=== PATIENT | male | born 1995 | race Caucasian/White ===

== ENCOUNTER → 2016-11-16 | Outpatient (CLI) | payer OTHER ==
--- NOTE | 2016-11-20 13:23 | CT ---
EXAM DATE: 11/16/16 PATIENT'S AGE: 21 Patient: AUBREY THOMPSON Facility: [place], [place] Site Site : 93 Study: CT Extremity Right [id number] 2:39:55 PM Ordering Physician: RICCARDO Final Report: HISTORY: Right foot injury. Evaluate for fracture. Technique: Noncontrast CT of the right foot with axial reconstructed and sagittal coronal reformatted images created. Findings: As subtly seen on axial image #45 series 202, there is linear sclerosis involving the posterior aspect of the calcaneus measuring approximately 1.3 cm medial/lateral suspicious for a nondisplaced incomplete fracture consisting primarily of trabecular microfractures. No discrete cortical break. Correlation with the site of the patient`s pain is suggested. There is no acute distal tibial or fibular fracture. As seen on axial image #220 of series 201, there is subtle linear lucency involving the posterior medial aspect of the talar dome suspicious for a subcentimeter nondisplaced fracture. An ankle joint effusion is present. There is an os trigonum. Posterior subtalar joint effusion is present. The navicular bone, cuneiform bones and cuboid bone are intact. TMT alignment maintained. There is no metatarsal fracture. The phalanges are intact. There is soft tissue hemorrhage about the anterolateral aspect of the ankle. Impression: 1. Suspected tiny non-displaced fracture involving the posteromedial aspect of the talar dome measuring under 1 cm in size and subtly seen on the axial images. 2. Ankle and posterior subtalar joint effusions. 3. Linear sclerosis involving the posterior medial aspect of the calcaneus suspicious for a small nondisplaced incomplete fracture consisting of medullary trabecular microfractures and not a discrete cortical break. 4. Soft tissue hemorrhage within the anterolateral soft tissues of the ankle. Dictated by Isauro Murdock MD @ Nov 17 2016 4:41PM (Electronic Signature) Report Signed by Proxy. MIRTHA
== END ==
LOC: MW.DI 13:37
PROVIDERS: ATTEND General Practice
DX: S92.909A Unspecified fracture of unspecified foot, initial encounter for closed fracture (principal)
CPT/HCPCS: 73700-26-RT; 73700-RT

== ENCOUNTER 2018-10-02 18:35 | Emergency (ER) | payer BC, OTHER ==
[2018-10-02] MEDS ORDERED: Sodium Chloride 0.9% 1,000 ML IV ONE (19:45)
[2018-10-02] MEDS ORDERED: Ondansetron 4 MG/2 ML SDV IVPUSH ONE (19:45)
[2018-10-02] MEDS ORDERED: Ketorolac 30 MG/ML SDV IVPUSH ONE (19:52)
[2018-10-02 20:41] LABS: CHLORIDE,CL 104 mmol/L (98-107); SODIUM,NA 142 mmol/L (136-148)
--- NOTE | 2018-10-02 21:01 | EDM.PDOC ---
ED HPI GENERAL MEDICAL PROBLEM - General Chief Complaint: Abdominal Pain Stated Complaint: ABDOMINAL PAIN, VOMITING Time Seen by Provider: 10/02/18 19:45 Source of Information: Reports: Patient History Limitations: Reports: No Limitations - History of Present Illness INITIAL COMMENTS - FREE TEXT/NARRATIVE: HISTORY AND PHYSICAL: History of present illness: Patient is a 23-year-old male presents to the ED today with right lower quadrant pain. Patient states the pain does radiate around to the back. He states that the pain started yesterday and is currently a 9 out of 10. He describes it as sharp and burning. He states the pain is worse with movement and better with sitting up. Patient has not taken anything for his pain. Patient denies any prior abdominal surgeries. He denies fever, chills, burning with urination, blood in his urine or stool, change in bowel movement, testicular pain or scrotal tenderness. Review of systems: As per history of present illness and below otherwise all systems reviewed and negative. Past medical history: As per history of present illness and as reviewed below otherwise noncontributory. Surgical history: As per history of present illness and as reviewed below otherwise noncontributory. Social history: No reported history of drug or alcohol abuse. Family history: As per history of present illness and as reviewed below otherwise noncontributory. Physical exam: General: Patient sitting comfortably in no acute distress and nontoxic appearing HEENT: Atraumatic, normocephalic, pupils reactive, negative for conjunctival pallor or scleral icterus, mucous membranes moist, throat clear, neck supple, nontender, trachea midline. No meningeal signs. Lungs: Clear to auscultation, breath sounds equal bilaterally, chest nontender. Heart: S1S2, regular, negative for clicks, rubs, or overt murmur. Abdomen: Moderate pain to palpation of the right lower quadrant with guarding. Negative rebound tenderness. Otherwise, soft, nondistended. Negative for masses or hepatosplenomegaly. Negative for costovertebral tenderness. No rigidity, rebound, guarding. Pelvis: Stable nontender. Genitourinary: Deferred. Rectal: Deferred. Extremities: Atraumatic, negative for cords or calf pain. Neurovascular unremarkable. Neuro: Awake, alert, oriented. Cranial nerves II through XII unremarkable. Cerebellum unremarkable. Motor and sensory unremarkable throughout. Exam nonfocal. Notes: Did discuss with patient the need for follow-up of the area found in the femur. Also discussed the importance for follow-up with the Urologist. Supportive care measures were being discussed with patient. He doesn't have any questions or concerns at this time and is agreeable to plan of care. Diagnostics: CBC, CMP, UA, lipase, abdominal and pelvic CT Therapeutics: Toradol, Saline Prescriptions: Flomax, Zofran, [place] # 15 Impression: Ureter stone Plan: 1. Follow up with the Urologist. Take medications as prescribed. 2. Follow-up with your primary care provider for further follow up of the femur as discussed. 3. Return to the ED as needed as discussed. Definitive disposition and diagnosis as appropriate pending reevaluation and review of above. Right Lower Abdomen Pain Score (Numeric/FACES): 6 - Related Data Allergies Allergy/AdvReac Type Severity Reaction Status Date / Time No Known Allergies Allergy Verified 10/02/18 19:27 Home Meds: Home Meds Lisinopril 1 tab DAILY 10/02/18 [History] Past Medical History - Past Health History Medical/Surgical History: Denies Medical/Surgical History Cardiovascular History: Reports: Hypertension Respiratory History: Reports: Asthma - Past Surgical History HEENT Surgical History: Reports: Other (See Below) Other HEENT Surgeries/Procedures: jaw surgery Social & Family History - Family History Family Medical History: Noncontributory - Tobacco Use Smoking Status *Q: Current Every Day Smoker Years of Tobacco use: 7 Packs/Tins Daily: 0.1 - Caffeine Use Caffeine Use: Reports: None - Recreational Drug Use Recreational Drug Use: No ED ROS GENERAL - Review of Systems Review Of Systems: ROS reveals no pertinent complaints other than HPI. ED EXAM, GI/ABD - Physical Exam Exam: See Below (see dictation) Course - Vital Signs Last Recorded V/S: Last Vital Signs Temp 98.5 F 10/02/18 21:43 Pulse 80 10/02/18 21:43 Resp 18 10/02/18 21:43 BP 131/77 10/02/18 21:43 Pulse Ox 95 10/02/18 21:43 - Orders/Labs/Meds Labs: Laboratory Tests 10/02/18 10/02/18 10/02/18 Range/Units 19:58 19:58 19:58 WBC 9.05 (4.0-11.0) K/uL RBC 5.57 (4.50-5.90) M/uL Hgb 16.3 (13.0-17.0) g/dL Hct 47.2 (38.0-50.0) % MCV 84.7 (80.0-98.0) fL MCH 29.3 (27.0-32.0) pg MCHC 34.5 (31.0-37.0) g/dL RDW Std Deviation 40.1 (28.0-62.0) fl RDW Coeff of Monique 13 (11.0-15.0) % Plt Count 256 (150-400) K/uL MPV 9.70 (7.40-12.00) fL Neut % (Auto) 53.0 (48.0-80.0) % Lymph % (Auto) 35.8 (16.0-40.0) % [place] % (Auto) 8.7 (0.0-15.0) % Eos % (Auto) 1.9 (0.0-7.0) % Baso % (Auto) 0.6 (0.0-1.5) % Neut # (Auto) 4.8 (1.4-5.7) K/uL Lymph # (Auto) 3.2 H (0.6-2.4) K/uL [place] # (Auto) 0.8 (0.0-0.8) K/uL Eos # (Auto) 0.2 (0.0-0.7) K/uL Baso # (Auto) 0.1 (0.0-0.1) K/uL Nucleated RBC % 0.0 /100WBC Nucleated RBCs # 0 K/uL Sodium 142 (136-148) mmol/L Potassium 3.9 (3.5-5.1) mmol/L Chloride 104 (98-107) mmol/L Carbon Dioxide 29.1 (21.0-32.0) mmol/L BUN 15 (7.0-18.0) mg/dL Creatinine 1.0 (0.8-1.3) mg/dL Est Cr Clr Drug Dosing 101.90 mL/min Estimated GFR (MDRD) > 60.0 ml/min Glucose 86 (74-106) mg/dL Calcium 8.9 (8.5-10.1) mg/dL Total Bilirubin 0.3 (0.2-1.0) mg/dL AST 28 (15-37) IU/L ALT 91 H (14-63) IU/L Alkaline Phosphatase 134 H (46-116) U/L Total Protein 8.1 (6.4-8.2) g/dL Albumin 3.9 (3.4-5.0) g/dL Globulin 4.2 H (2.6-4.0) g/dL Albumin/Globulin Ratio 0.9 (0.9-1.6) Lipase 105 (73-393) U/L Urine Color YELLOW Urine Appearance CLEAR Urine pH 6.0 (5.0-8.0) Ur Specific [place] >= 1.030 (1.001-1.035) Urine Protein TRACE H (NEGATIVE) mg/dL Urine Glucose (UA) NEGATIVE (NEGATIVE) mg/dL Urine Ketones NEGATIVE (NEGATIVE) mg/dL Urine Occult Blood LARGE H (NEGATIVE) Urine Nitrite NEGATIVE (NEGATIVE) Urine Bilirubin NEGATIVE (NEGATIVE) Urine Urobilinogen 0.2 (<2.0) EU/dL Ur Leukocyte Esterase NEGATIVE (NEGATIVE) Urine RBC 24-26 (0-2/HPF) Urine WBC 0-2 (0-5/HPF) Ur Epithelial Cells RARE (NONE-FEW) Calcium Oxalate Crystal RARE (NEGATIVE) Urine Bacteria FEW (NEGATIVE) Urine Mucus LIGHT (NONE-MOD) Meds: Medications Discontinued Medications Generic Name Dose Route Start Last Admin Trade Name Freq PRN Reason Stop Dose Admin Sodium Chloride 1,000 mls @ 999 mls/hr 10/02/18 19:45 10/02/18 20:01 Normal Saline IV 10/02/18 20:45 999 mls/hr STAT ONE Administration Ketorolac Tromethamine 30 mg 10/02/18 19:52 10/02/18 20:04 Toradol IVPUSH 10/02/18 19:53 30 mg ONETIME ONE Administration Ondansetron HCl 4 mg 10/02/18 19:45 10/02/18 20:01 Zofran IVPUSH 10/02/18 19:46 4 mg ONETIME ONE Administration Departure - Departure Time of Disposition: 21:49 Disposition: Home, Self-Care 01 Clinical Impression: Ureteral stone with hydronephrosis - Discharge Information Referrals: PCP,Not In Area [Primary Care Provider] - Forms: ED Department Discharge Additional Instructions: The following information is given to patients seen in the emergency department who are being discharged to home. This information is to outline your options for follow-up care. We provide all patients seen in our emergency department with a follow-up referral. The need for follow-up, as well as the timing and circumstances, are variable depending upon the specifics of your emergency department visit. If you don't have a primary care physician on staff, we will provide you with a referral. We always advise you to contact your personal physician following an emergency department visit to inform them of the circumstance of the visit and for follow-up with them and/or the need for any referrals to a consulting specialist. The emergency department will also refer you to a specialist when appropriate. This referral assures that you have the opportunity for follow-up care with a specialist. All of these measure are taken in an effort to provide you with optimal care, which includes your follow-up. Under all circumstances we always encourage you to contact your private physician who remains a resource for coordinating your care. When calling for follow-up care, please make the office aware that this follow-up is from your recent emergency room visit. If for any reason you are refused follow-up, please contact the [facility] Emergency Department at and asked to speak to the emergency department charge nurse. [facility] [address] [place] [id number] [place] [address] 1. Take medications as prescribed. You can alternate Motrin and ibuprofen as needed and as directed for pain and discomfort. 2. Follow-up with your it teacher or primary care provider as discussed. 3. Return to ED as needed as discussed.
--- NOTE | 2018-10-02 21:42 | CT ---
INDICATION: Right lower quadrant pain for 3 days TECHNIQUE: CT abdomen and pelvis acquired with 100 cc Isovue 370 IV contrast. COMPARISON: None FINDINGS: Lower chest: Unremarkable. Liver: Unremarkable. Spleen: Unremarkable. Pancreas: Unremarkable. Gallbladder and bile ducts: Unremarkable. Adrenal glands: Unremarkable. Kidneys: Mild right hydronephrosis and hydroureter secondary to a 3 mm stone in the mid right ureter. There is also a 3 mm stone in the right mid kidney. GI tract: There are few colonic diverticula. No evidence for diverticulitis. Appendix is normal. Vascular structures: Unremarkable. Lymph nodes: Unremarkable. Miscellaneous: Small fat containing umbilical hernia. No free air or significant free fluid. Pelvic Organs: Unremarkable. Bones: Partial visualization of a 2.6 cm mixed lytic and sclerotic bone lesion in the proximal diaphysis of the left femur. This has a well-defined, sclerotic margin. No periosteal reaction identified. Note that the entire lesion is not included on this exam. IMPRESSION: IMPRESSION:Mild right hydronephrosis and hydroureter secondary to a 3 mm stone in the mid right ureter. There is also a 3 mm stone in the right mid kidney. There are a few colonic diverticula. Normal appendix. Bone lesion in the proximal diaphysis of the left femur. This has a nonaggressive appearance. This lesion is not entirely included on this exam. Non emergent radiographs of the left femur are recommended for further characterization. Please note that all CT scans at this facility use dose modulation, iterative reconstruction, and/or weight-based dosing when appropriate to reduce radiation dose to as low as reasonably achievable. Dictated by Alix Josue MD @ Oct 02 2018 9:31PM Signed by Dr. Alix Josue @ Oct 02 2018 9:41PM
== END 2018-10-02 22:10 | disposition home or self-care (01) ==
LOC: MW.ED 18:35
DX: N13.2 Hydronephrosis with renal and ureteral calculous obstruction (principal); F17.210 Nicotine dependence, cigarettes, uncomplicated; I10 Essential (primary) hypertension; J45.909 Unspecified asthma, uncomplicated; Z79.899 Other long term (current) drug therapy
CPT/HCPCS: 36415; 74177; 80053; 81001; 83690; 85025; 96361; 96374; 96375; 99284; J1885; J2405; J7040

== ENCOUNTER 2018-11-06 07:57 | Emergency (ER) | payer BC ==
[2018-11-06] MEDS ORDERED: Ketorolac 60 MG/2 ML SDV IM ONE (08:14)
--- NOTE | 2018-11-06 08:17 | EDM.PDOC ---
ED HPI GENERAL MEDICAL PROBLEM - General Chief Complaint: Flank Pain Stated Complaint: LOWER BACK PAIN Time Seen by Provider: 11/06/18 08:08 - History of Present Illness INITIAL COMMENTS - FREE TEXT/NARRATIVE: HISTORY AND PHYSICAL: History of present illness: The patient is a healthy 23-year-old male who presents with complaints of persistent right groin pain which he has had since the end of September. The patient has a history of one kidney stone in the past that had to be removed and was seen here in our emergency department on October 02 for kidney stone on the right side. He was diagnosed with a 3 mm ureteral stone as well as a second 3 mm stone within the right kidney. The patient says that she was given medication but did not follow-up and he did feel better but the pain has returned and has never completely gone away. He says he has been straining his urine but he has not seen a kidney stone. He has no hematuria and no dysuria or frequency and no flank pain. He said in September she had pain in the back as well as the groin but now it is just in the groin. He has no trauma to the area no right upper abdominal pain no fevers chills nausea or vomiting. He has no testicular pain or swelling. The patient insists that he has been straining his urine has not seen a kidney stone. The patient has no midline back pain and the discomfort he is feeling in his groin does not radiate to his leg Review of systems: As per history of present illness and below otherwise all systems reviewed and negative. Past medical history: As per history of present illness and as reviewed below otherwise noncontributory. Surgical history: As per history of present illness and as reviewed below otherwise noncontributory. Social history: No reported history of drug or alcohol abuse. Family history: As per history of present illness and as reviewed below otherwise noncontributory. Physical exam: General: Well-developed well-nourished overweight man who is nontoxic and vital signs are noted by me. He looks very comfortable in the room HEENT: Atraumatic, normocephalic, negative for conjunctival pallor or scleral icterus, mucous membranes moist, throat clear, neck supple, nontender, trachea midline. Lungs: Clear to auscultation, breath sounds equal bilaterally, chest nontender. Heart: S1S2, regular rate and rhythm no overt murmurs Abdomen: Soft, nondistended, nontender. Negative for masses or hepatosplenomegaly. Negative for costovertebral tenderness. I'm unable to elicit pain on palpation and bowel sounds are normoactive Pelvis: Stable nontender. Genitourinary: Deferred. Rectal: Deferred. Extremities: Atraumatic, negative for cords or calf pain. Neurovascular unremarkable. Neuro: Awake, alert, oriented. Cranial nerves II through XII unremarkable. Cerebellum unremarkable. Motor and sensory unremarkable throughout. Exam nonfocal. Diagnostics: CBC CMP UA with reflex CT scan Therapeutics: Toradol She is aware of all testing results and that he does need to be followed up by urology. He says he is scheduled to go back home to [facility] next week again I did tell him to call and follow-up with Dr. Garcia here and I will give him a copy of his CT scan so that he can follow-up at home if he chooses. I still will give him more Flomax as well as pain management to try to pass this spontaneously but at this point he will need to be seen by urology as he will likely need an intervention unless it happens in the next one week. Patient is aware of Impression: Persistent right ureteral stone Definitive disposition and diagnosis as appropriate pending reevaluation and review of above. Right groin Pain Score (Numeric/FACES): 7 - Related Data Allergies Allergy/AdvReac Type Severity Reaction Status Date / Time No Known Allergies Allergy Verified 11/06/18 08:09 Home Meds: Home Meds Lisinopril 1 tab DAILY 10/02/18 [History] Past Medical History - Past Health History Medical/Surgical History: Denies Medical/Surgical History HEENT History: Reports: None Cardiovascular History: Reports: Hypertension Respiratory History: Reports: Asthma Gastrointestinal History: Reports: None Genitourinary History: Reports: Renal Calculus Musculoskeletal History: Reports: None Neurological History: Reports: None Psychiatric History: Reports: None Endocrine/Metabolic History: Reports: None Hematologic History: Reports: None Immunologic History: Reports: None Oncologic (Cancer) History: Reports: None Dermatologic History: Reports: None - Past Surgical History Head Surgeries/Procedures: Reports: None HEENT Surgical History: Reports: Other (See Below) Other HEENT Surgeries/Procedures: jaw surgery Cardiovascular Surgical History: Reports: None Respiratory Surgical History: Reports: None GI Surgical History: Reports: None Male Surgical History: Reports: None Endocrine Surgical History: Reports: None Neurological Surgical History: Reports: None Musculoskeletal Surgical History: Reports: Amputation Oncologic Surgical History: Reports: None Dermatological Surgical History: Reports: None Social & Family History - Family History Family Medical History: Noncontributory - Caffeine Use Caffeine Use: Reports: None ED ROS GENERAL - Review of Systems Review Of Systems: ROS reveals no pertinent complaints other than HPI. ED EXAM, GENERAL - Physical Exam Exam: See Below (See dictation) Course - Vital Signs Last Recorded V/S: Last Vital Signs Temp 36.1 C 11/06/18 08:07 Pulse 86 11/06/18 08:07 Resp 18 11/06/18 08:07 BP 163/130 H 11/06/18 08:07 Pulse Ox 95 11/06/18 08:07 - Orders/Labs/Meds Labs: Laboratory Tests 11/06/18 11/06/18 11/06/18 Range/Units 08:23 08:23 08:25 WBC 8.16 (4.0-11.0) K/uL RBC 5.30 (4.50-5.90) M/uL Hgb 15.4 (13.0-17.0) g/dL Hct 45.3 (38.0-50.0) % MCV 85.5 (80.0-98.0) fL MCH 29.1 (27.0-32.0) pg MCHC 34.0 (31.0-37.0) g/dL RDW Std Deviation 40.8 (28.0-62.0) fl RDW Coeff of Monique 13 (11.0-15.0) % Plt Count 251 (150-400) K/uL MPV 9.50 (7.40-12.00) fL Neut % (Auto) 52.1 (48.0-80.0) % Lymph % (Auto) 39.2 (16.0-40.0) % [place] % (Auto) 6.0 (0.0-15.0) % Eos % (Auto) 2.1 (0.0-7.0) % Baso % (Auto) 0.6 (0.0-1.5) % Neut # (Auto) 4.3 (1.4-5.7) K/uL Lymph # (Auto) 3.2 H (0.6-2.4) K/uL [place] # (Auto) 0.5 (0.0-0.8) K/uL Eos # (Auto) 0.2 (0.0-0.7) K/uL Baso # (Auto) 0.1 (0.0-0.1) K/uL Nucleated RBC % 0.0 /100WBC Nucleated RBCs # 0 K/uL Sodium 138 (136-148) mmol/L Potassium 3.9 (3.5-5.1) mmol/L Chloride 99 (98-107) mmol/L Carbon Dioxide 26.0 (21.0-32.0) mmol/L BUN 13 (7.0-18.0) mg/dL Creatinine 0.9 (0.8-1.3) mg/dL Est Cr Clr Drug Dosing 113.23 mL/min Estimated GFR (MDRD) > 60.0 ml/min Glucose 102 (74-106) mg/dL Calcium 9.2 (8.5-10.1) mg/dL Total Bilirubin 0.4 (0.2-1.0) mg/dL AST 29 (15-37) IU/L ALT 53 (14-63) IU/L Alkaline Phosphatase 129 H (46-116) U/L Total Protein 8.2 (6.4-8.2) g/dL Albumin 4.2 (3.4-5.0) g/dL Globulin 4.0 (2.6-4.0) g/dL Albumin/Globulin Ratio 1.0 (0.9-1.6) Urine Color YELLOW Urine Appearance CLEAR Urine pH 6.0 (5.0-8.0) Ur Specific [place] >= 1.030 (1.001-1.035) Urine Protein TRACE H (NEGATIVE) mg/dL Urine Glucose (UA) NEGATIVE (NEGATIVE) mg/dL Urine Ketones NEGATIVE (NEGATIVE) mg/dL Urine Occult Blood TRACE-INTACT H (NEGATIVE) Urine Nitrite NEGATIVE (NEGATIVE) Urine Bilirubin NEGATIVE (NEGATIVE) Urine Urobilinogen 0.2 (<2.0) EU/dL Ur Leukocyte Esterase NEGATIVE (NEGATIVE) Urine RBC 1-3 (0-2/HPF) Urine WBC 0-3 (0-5/HPF) Ur Epithelial Cells OCCASIONAL (NONE-FEW) Urine Bacteria FEW (NEGATIVE) Urine Mucus LIGHT (NONE-MOD) Meds: Medications Discontinued Medications Generic Name Dose Route Start Last Admin Trade Name [place] PRN Reason Stop Dose Admin Ketorolac Tromethamine 60 mg 11/06/18 08:14 11/06/18 08:23 Toradol IM 11/06/18 08:15 60 mg ONETIME ONE Administration Departure - Departure Time of Disposition: 09:45 Disposition: Home, Self-Care 01 Condition: Good Clinical Impression: Ureteral stone - Discharge Information Referrals: PCP,None [Primary Care Provider] - Forms: ED Department Discharge Additional Instructions: The following information is given to patients seen in the emergency department who are being discharged to home. This information is to outline your options for follow-up care. We provide all patients seen in our emergency department with a follow-up referral. The need for follow-up, as well as the timing and circumstances, are variable depending upon the specifics of your emergency department visit. If you don't have a primary care physician on staff, we will provide you with a referral. We always advise you to contact your personal physician following an emergency department visit to inform them of the circumstance of the visit and for follow-up with them and/or the need for any referrals to a consulting specialist. The emergency department will also refer you to a specialist when appropriate. This referral assures that you have the opportunity for followup care with a specialist. All of these measure are taken in an effort to provide you with optimal care, which includes your followup. Under all circumstances we always encourage you to contact your private physician who remains a resource for coordinating your care. When calling for followup care, please make the office aware that this follow-up is from your recent emergency room visit. If for any reason you are refused follow-up, please contact the [facility] emergency department at and ask to speak to the emergency department charge nurse. [facility] [address] [place] [address] [id number] Push hydration and take Flomax as directed daily to try to help pass the stone. Continue to strain all urine looking for the kidney stone. Please contact our urologist or your urologist at home for follow-up care as he will likely need this follow-up in order to facilitate passage of the stone as it has been persistent since September. Use pain medications as needed and directed and also add [id number] ibuprofen. The pain medication you have been prescribed can only be taken when at home. Return to ER as needed and as discussed
[2018-11-06 09:01] LABS: CHLORIDE,CL 99 mmol/L (98-107); SODIUM,NA 138 mmol/L (136-148)
--- NOTE | 2018-11-06 09:26 | CT ---
CT of the abdomen and pelvis without contrast. HISTORY: Pain TECHNIQUE: Axial CT images were obtained of the abdomen and pelvis without contrast. Coronal and sagittal reconstructions obtained. FINDINGS: The lung bases are clear, no pleural effusion. The liver, spleen, adrenal glands, and pancreas appear unremarkable for noncontrast examination. The gallbladder appears normal. There is no bulky retroperitoneal lymphadenopathy. No abdominal ascites. There is a 2.5 mm stone within the distal ureter with mild proximal hydronephrosis. 2 mm nonobstructing right stone also noted. The large and small bowel are normal in caliber without evidence of obstruction. The appendix appears normal. There is no bulky pelvic lymphadenopathy. No free fluid. No free air. The urinary bladder appears normal. The visualized osseous structures appear normal. IMPRESSION: 1. There is a 2.5 mm stone within the distal right ureter with mild proximal hydronephrosis. 2. Nonobstructing nephrolithiasis also noted.
== END 2018-11-06 09:54 | disposition home or self-care (01) ==
LOC: MW.ED 07:57
DX: N13.2 Hydronephrosis with renal and ureteral calculous obstruction (principal)
CPT/HCPCS: 36415; 74176; 80053; 81001; 85025; 96372; 99284; J1885

== ENCOUNTER 2019-02-17 23:17 | Emergency (ER) | payer BC ==
[2019-02-17] MEDS ORDERED: Acetaminophen 500 MG Tab PO ONE (23:36)
[2019-02-17] MEDS ORDERED: Sodium Chloride 0.9% 2.5 ML Syringe FLUSH PRN (23:36)
[2019-02-17] MEDS ORDERED: Ondansetron 4 MG/2 ML SDV IVPUSH ONE (23:36)
[2019-02-17] MEDS ORDERED: Sodium Chloride 0.9% 10 ML Syringe FLUSH PRN (23:36)
[2019-02-17] MEDS ORDERED: Sodium Chloride 0.9% 1,000 ML IV ONE (23:36)
--- NOTE | 2019-02-17 23:41 | EDM.PDOC ---
ED HPI GENERAL MEDICAL PROBLEM - General Chief Complaint: Chest Pain Stated Complaint: PT HAS HIGH BLOOD PRESSURE Time Seen by Provider: 02/17/19 23:28 - History of Present Illness INITIAL COMMENTS - FREE TEXT/NARRATIVE: HISTORY AND PHYSICAL: History of present illness: The patient is a 23-year-old male with a history of hypertension for which he was taking lisinopril 10 mg daily and has been off those meds or about 1 year and who presents with a persistent frontal headache that comes and goes and is now associated with some nausea and slight chest pain. The patient says that his provider moved and he never connected with a new provider to get a refill on his prescription and initially he was on 20 mg a day and it was lowered to 10 mg a day and he has been off that for the last one year. The patient says that about a week ago he was having sexual intercourse when he started feeling like he was getting a headache in his temples and frontal this head which was gradual in onset and not sudden and he took some ibuprofen and it went away. He says that since that initial headache he has had headaches every other day if not every day and it is worse at nighttime when he is not busy doing his work. He has been eating and drinking normally through this and has had intermittent nausea when the headache comes on and he mostly has headaches at nighttime and he takes an ibuprofen/Motrin and goes to sleep and he gets better. This is why he did not come in to seek medical attention. The patient says that when his doing his work during the day he doesn't really feel any discomfort. This evening he took some Motrin and it did not work so he had some old hydrocodone' s from his prior kidney stone and he took a half tablet of that and it did not help so he thought he should come in. He says that initially with the headache he did have nausea and one episode of vomiting and since that time whenever he gets a headache he does feel a little nauseated but has not vomited. He's had no fevers no chills no upper respiratory symptoms no shortness of breath no diarrhea and is making normal urine output. He says that about 30 minutes ago while he was having a headache he started having some vague chest discomfort which is not localizing right or left and has not occurred with any of the prior headaches. He has no weakness numbness or tingling in his extremities no recent trauma and no neck or back pain. He says that the headaches are all in the front of his head and he does not have any posterior head or neck pain. His neck does not feel stiff. Review of systems: As per history of present illness and below otherwise all systems reviewed and negative. Past medical history: As per history of present illness and as reviewed below otherwise noncontributory. Surgical history: As per history of present illness and as reviewed below otherwise noncontributory. Social history: No reported history of drug or alcohol abuse. Family history: As per history of present illness and as reviewed below otherwise noncontributory. Physical exam: General: Well-developed well-nourished overweight man who is nontoxic and vital signs are noted by me. HEENT: Atraumatic, normocephalic, pupils reactive, negative for conjunctival pallor or scleral icterus, mucous membranes moist, throat clear, neck supple, nontender, trachea midline. The patient is slightly photophobic on evaluation and he has no nuchal rigidity or lymphadenopathy. When I palpate the temples bilaterally he says it is discomforting as well as when I touch the frontal scalp but there are no defects deformities or strict sinus tenderness. Lungs: Clear to auscultation, breath sounds equal bilaterally, chest nontender. Heart: S1S2, regular, negative for clicks, rubs, or JVD. Abdomen: Soft, nondistended, nontender. Negative for masses or hepatosplenomegaly. Negative for costovertebral tenderness. Pelvis: Stable nontender. Genitourinary: Deferred. Rectal: Deferred. Extremities: Atraumatic, negative for cords or calf pain. Neurovascular unremarkable. No pedal edema or leg asymmetry Neuro: Awake, alert, oriented. Cranial nerves II through XII unremarkable. Cerebellum unremarkable. Motor and sensory unremarkable throughout. Exam nonfocal. Diagnostics: EKG CBC CMP INR troponin UA with reflex CT scan of the head chest x-ray; CTA of the head Spinal fluid for cell count in tubes 1 and 4, protein glucose 2, Gram stain and culture to 3 Therapeutics: IV O2 monitor IV fluids Zofran Tylenol; Toradol Benadryl Solu-Medrol Dilaudid The patient's repeat blood pressure is 123/61 and his nausea has improved. He says he still has a headache after the Tylenol and I will dose him with other pain medications pending the CT scan results. I have not given him any antihypertensives. I discussed with the patient his testing results and will be giving him more medications for his headache pain. I discussed with them that his story is concerning for an aneurysmal bleed due to the way the headache started 1 week ago but it is also not classic in length that it has been ongoing for the last [address] scan findings. We have discussed proceeding to a CTA of his head to see if an delineate any aneurysm. We will discuss further workup and care pending that test result and his response to medications. I discussed with the patient his negative CTA of the head revealing no evidence of aneurysm. He says his headache is improved and in fact when I entered the room he was sleeping again and I had to wake him to discuss the test results. I discussed with them the percentages of a negative CTA with presence of subarachnoid hemorrhage and although it is small I still will offer him the lumbar puncture. We have also discussed that it is unclear if the lumbar puncture will give us a definitive answer as he has had this headache for the last 1 week. We have discussed risks and benefits and procedure itself is currently thinking and deciding what he would like to do. Patient has signed consent for lumbar puncture to obtain fluid for study. I explained the procedure risks and benefits to him at length. Procedure note: After the procedure was explained and consent was signed the patient was positioned in the seated position and the area of his back was prepped and draped in sterile fashion. 1% lidocaine without epinephrine was infused in the lower lumbar soft tissue area and the L4-L5 disc space was attempted to be accessed and on my first pass the patient said that he was feeling lightheaded and hot and he wanted to lay down. The spinal needle was removed and the patient was laid down. I was only able to get the first attempt when these symptoms started and was only starting to approach the disc space . At that point in light of the patient's concern and the difficulty in obtaining this fluid due to the soft tissue and body habitus the EQUIPMENT SERVICE ASSOCIATE was contacted and he is now here doing the procedure. Please see his note for procedure note information. I gave a dose of Dilaudid to the patient to see if I could break the headache and I have. The patient was strongly advised to be admitted to the hospital for further care and evaluation by Dr. Whitley this morning and she is available for consultation for inpatient. The patient is aware of my concerns and the risks and does not want to be admitted to the hospital. I will give him tramadol for home but told him I can give him nothing stronger and have advised him to start a headache journal. He is also aware that I cannot restart his lisinopril as he has been normotensive since being here and that would need to be addressed in the clinic. I placed his name on the expedited follow-up and he has been told to call at 8:30 in the morning to get an appointment in the next few days. He will be told to call the ED if he cannot get that appointment. He was also advised on reasons to return Critical care time excluding procedures:35min Impression: Episodic headache Hypertension with medication noncompliance Definitive disposition and diagnosis as appropriate pending reevaluation and review of above. chest Pain Score (Numeric/FACES): 5 headache Pain Score (Numeric/FACES): 9 - Related Data Allergies Allergy/AdvReac Type Severity Reaction Status Date / Time No Known Allergies Allergy Verified 02/17/19 23:25 Home Meds: Home Meds . [No Known Home Meds] 02/17/19 [History] Past Medical History - Past Health History Medical/Surgical History: Denies Medical/Surgical History HEENT History: Reports: None Cardiovascular History: Reports: Hypertension, Other (See Below) Other Cardiovascular History: states been off his HTN medications for almost a year Respiratory History: Reports: Asthma Gastrointestinal History: Reports: None Genitourinary History: Reports: Renal Calculus Musculoskeletal History: Reports: None Neurological History: Reports: None Psychiatric History: Reports: None Endocrine/Metabolic History: Reports: None Hematologic History: Reports: None Immunologic History: Reports: None Oncologic (Cancer) History: Reports: None Dermatologic History: Reports: None - Infectious Disease History Infectious Disease History: Reports: Chicken Pox - Past Surgical History Head Surgeries/Procedures: Reports: None HEENT Surgical History: Reports: Other (See Below) Other HEENT Surgeries/Procedures: jaw surgery Cardiovascular Surgical History: Reports: None Respiratory Surgical History: Reports: None GI Surgical History: Reports: None Male Surgical History: Reports: Other (See Below) Other Male Surgeries/Procedures: kidney stones blasted Endocrine Surgical History: Reports: None Neurological Surgical History: Reports: None Oncologic Surgical History: Reports: None Dermatological Surgical History: Reports: None Social & Family History - Family History Family Medical History: Noncontributory - Tobacco Use Smoking Status *Q: Current Every Day Smoker Years of Tobacco use: 5 Packs/Tins Daily: 0.5 - Caffeine Use Caffeine Use: Reports: None - Recreational Drug Use Recreational Drug Use: No ED ROS GENERAL - Review of Systems Review Of Systems: ROS reveals no pertinent complaints other than HPI. ED EXAM, GENERAL - Physical Exam Exam: See Below (See dictation) Course - Vital Signs Last Recorded V/S: Last Vital Signs Temp 36.1 C 02/18/19 02:00 Pulse 78 02/18/19 02:54 Resp 18 02/18/19 02:54 BP 121/62 02/18/19 02:54 Pulse Ox 96 02/18/19 02:54 - Orders/Labs/Meds Orders: Active Orders 24 hr Category Date Time Status Cardiac Monitoring [RC] . DIRECTED Care 02/17/19 23:35 Active Notify Provider Consults [RC] ASDIRECTED Care 02/18/19 03:06 Active Oxygen Therapy, ED [RC] ASDIRECTED Care 02/17/19 23:35 Active Pulse Oximetry [RC] ASDIRECTED Care 02/17/19 23:35 Active Consult to Physician [CONS] Stat Cons 02/18/19 03:06 Active CULTURE CSF + SMEAR [RM] Stat Lab 02/18/19 03:10 Received GLUCOSE,CSF [BF] Stat Lab 02/18/19 03:10 Received PROTEIN,CSF [BF] Stat Lab 02/18/19 03:10 Received Sodium Chloride 0.9% [Normal Saline] 1,000 ml Med 02/18/19 03:45 Active IV ASDIRECTED Sodium Chloride 0.9% [Saline Flush] Med 02/17/19 23:36 Active 10 ml FLUSH ASDIRECTED PRN Sodium Chloride 0.9% [Saline Flush] Med 02/17/19 23:36 Active 2.5 ml FLUSH ASDIRECTED PRN Saline Lock Insert [OM.PC] Stat Oth 02/17/19 23:35 Ordered Medication Orders Sodium Chloride (Normal Saline) 1,000 mls @ 150 mls/hr IV ASDIRECTED ISABEL Last Admin: 02/18/19 03:38 Dose: 150 mls/hr Sodium Chloride (Saline Flush) 10 ml FLUSH ASDIRECTED PRN PRN Reason: Keep Vein Open Sodium Chloride (Saline Flush) 2.5 ml FLUSH ASDIRECTED PRN PRN Reason: Keep Vein Open Labs: Laboratory Tests 02/17/19 02/17/19 02/17/19 Range/Units 23:53 23:53 23:53 WBC 9.78 (4.0-11.0) K/uL RBC 5.25 (4.50-5.90) M/uL Hgb 14.9 (13.0-17.0) g/dL Hct 44.5 (38.0-50.0) % MCV 84.8 (80.0-98.0) fL MCH 28.4 (27.0-32.0) pg MCHC 33.5 (31.0-37.0) g/dL RDW Std Deviation 39.5 (28.0-62.0) fl RDW Coeff of Monique 13 (11.0-15.0) % Plt Count 278 (150-400) K/uL MPV 9.50 (7.40-12.00) fL Neut % (Auto) 62.5 (48.0-80.0) % Lymph % (Auto) 29.4 (16.0-40.0) % [place] % (Auto) 6.6 (0.0-15.0) % Eos % (Auto) 1.0 (0.0-7.0) % Baso % (Auto) 0.5 (0.0-1.5) % Neut # (Auto) 6.1 H (1.4-5.7) K/uL Lymph # (Auto) 2.9 H (0.6-2.4) K/uL Norton # (Auto) 0.7 (0.0-0.8) K/uL Eos # (Auto) 0.1 (0.0-0.7) K/uL Baso # (Auto) 0.1 (0.0-0.1) K/uL Nucleated RBC % 0.0 /100WBC Nucleated RBCs # 0 K/uL INR 1.18 Sodium 139 (136-148) mmol/L Potassium 3.6 (3.5-5.1) mmol/L Chloride 101 (98-107) mmol/L Carbon Dioxide 27.2 (21.0-32.0) mmol/L BUN 17 (7.0-18.0) mg/dL Creatinine 0.9 (0.8-1.3) mg/dL Est Cr Clr Drug Dosing 113.23 mL/min Estimated GFR (MDRD) > 60.0 ml/min Glucose 118 H (74-106) mg/dL Calcium 8.9 (8.5-10.1) mg/dL Total Bilirubin 0.5 (0.2-1.0) mg/dL AST 22 (15-37) IU/L ALT 42 (14-63) IU/L Alkaline Phosphatase 116 (46-116) U/L Troponin I < 0.050 (0.000-0.056) ng/mL Total Protein 7.7 (6.4-8.2) g/dL Albumin 3.9 (3.4-5.0) g/dL Globulin 3.8 (2.6-4.0) g/dL Albumin/Globulin Ratio 1.0 (0.9-1.6) Urine Color Urine Appearance Urine pH (5.0-8.0) Ur Specific [place] (1.001-1.035) Urine Protein (NEGATIVE) mg/dL Urine Glucose (UA) (NEGATIVE) mg/dL Urine Ketones (NEGATIVE) mg/dL Urine Occult Blood (NEGATIVE) Urine Nitrite (NEGATIVE) Urine Bilirubin (NEGATIVE) Urine Urobilinogen (<2.0) EU/dL Ur Leukocyte Esterase (NEGATIVE) Urine RBC (0-2/HPF) Urine WBC (0-5/HPF) Ur Epithelial Cells (NONE-FEW) Amorphous Sediment (NEGATIVE) Urine Bacteria (NEGATIVE) Urine Mucus (NONE-MOD) CSF Appearance CSF Color CSF WBC (0-0.005) K/uL CSF RBC (0.0-0.0) M/uL CSF Mononuclear Cells % CSF Polymorphonuclear % 02/18/19 02/18/19 02/18/19 Range/Units 00:25 03:10 03:10 WBC (4.0-11.0) K/uL RBC (4.50-5.90) M/uL Hgb (13.0-17.0) g/dL Hct (38.0-50.0) % MCV (80.0-98.0) fL MCH (27.0-32.0) pg MCHC (31.0-37.0) g/dL RDW Std Deviation (28.0-62.0) fl RDW Coeff of Monique (11.0-15.0) % Plt Count (150-400) K/uL MPV (7.40-12.00) fL Neut % (Auto) (48.0-80.0) % Lymph % (Auto) (16.0-40.0) % Norton % (Auto) (0.0-15.0) % Eos % (Auto) (0.0-7.0) % Baso % (Auto) (0.0-1.5) % Neut # (Auto) (1.4-5.7) K/uL Lymph # (Auto) (0.6-2.4) K/uL Norton # (Auto) (0.0-0.8) K/uL Eos # (Auto) (0.0-0.7) K/uL Baso # (Auto) (0.0-0.1) K/uL Nucleated RBC % /100WBC Nucleated RBCs # K/uL INR Sodium (136-148) mmol/L Potassium (3.5-5.1) mmol/L Chloride (98-107) mmol/L Carbon Dioxide (21.0-32.0) mmol/L BUN (7.0-18.0) mg/dL Creatinine (0.8-1.3) mg/dL Est Cr Clr Drug Dosing mL/min Estimated GFR (MDRD) ml/min Glucose (74-106) mg/dL Calcium (8.5-10.1) mg/dL Total Bilirubin (0.2-1.0) mg/dL AST (15-37) IU/L ALT (14-63) IU/L Alkaline Phosphatase (46-116) U/L Troponin I (0.000-0.056) ng/mL Total Protein (6.4-8.2) g/dL Albumin (3.4-5.0) g/dL Globulin (2.6-4.0) g/dL Albumin/Globulin Ratio (0.9-1.6) Urine Color YELLOW Urine Appearance CLEAR Urine pH 6.5 (5.0-8.0) Ur Specific [place] 1.025 (1.001-1.035) Urine Protein TRACE H (NEGATIVE) mg/dL Urine Glucose (UA) NEGATIVE (NEGATIVE) mg/dL Urine Ketones NEGATIVE (NEGATIVE) mg/dL Urine Occult Blood NEGATIVE (NEGATIVE) Urine Nitrite NEGATIVE (NEGATIVE) Urine Bilirubin NEGATIVE (NEGATIVE) Urine Urobilinogen 0.2 (<2.0) EU/dL Ur Leukocyte Esterase NEGATIVE (NEGATIVE) Urine RBC 0-1 (0-2/HPF) Urine WBC 0-1 (0-5/HPF) Ur Epithelial Cells RARE (NONE-FEW) Amorphous Sediment MODERATE (NEGATIVE) Urine Bacteria RARE (NEGATIVE) Urine Mucus LIGHT (NONE-MOD) CSF Appearance CLEAR CLEAR CSF Color COLORLESS COLORLESS CSF WBC 0.002 0.003 (0-0.005) K/uL CSF RBC 0.000 0.000 (0.0-0.0) M/uL CSF Mononuclear Cells 100.0 100.0 % CSF Polymorphonuclear 0.0 0.0 % Meds: Medications Generic Name Dose Route Start Last Admin Trade Name Roverto PRN Reason Stop Dose Admin Sodium Chloride 1,000 mls @ 150 mls/hr 02/18/19 03:45 02/18/19 03:38 Normal Saline IV 150 mls/hr ASDIRECTED ISABEL Administration Sodium Chloride 10 ml 02/17/19 23:36 Saline Flush FLUSH ASDIRECTED PRN Keep Vein Open Sodium Chloride 2.5 ml 02/17/19 23:36 Saline Flush FLUSH ASDIRECTED PRN Keep Vein Open Discontinued Medications Generic Name Dose Route Start Last Admin Trade Name Roverto PRN Reason Stop Dose Admin Acetaminophen 1,000 mg 02/17/19 23:36 02/17/19 23:50 Tylenol Extra Strength PO 02/17/19 23:37 1,000 mg ONETIME ONE Administration Diphenhydramine HCl 50 mg 02/18/19 00:58 02/18/19 01:06 Benadryl IVPUSH 02/18/19 00:59 50 mg ONETIME ONE Administration Hydromorphone HCl 1 mg 02/18/19 03:41 02/18/19 03:45 Dilaudid IVPUSH 02/18/19 03:42 1 mg ONETIME ONE Administration Sodium Chloride 1,000 mls @ 999 mls/hr 02/17/19 23:36 02/17/19 23:49 Normal Saline IV 02/18/19 00:36 999 mls/hr STAT ONE Administration Lidocaine HCl Confirm 02/18/19 02:45 02/18/19 02:55 Xylocaine-Mpf 1% Administered 02/18/19 02:46 Not Given Dose 5 mls @ as directed .ROUTE .STK-MED ONE Iopamidol 100 ml 02/18/19 01:39 02/18/19 01:39 Isovue Multipack-370 (76%) IVPUSH 02/18/19 01:40 100 ml ONETIME STA Administration Ketorolac Tromethamine 30 mg 02/18/19 00:58 02/18/19 01:06 Toradol IVPUSH 02/18/19 00:59 30 mg ONETIME ONE Administration Lidocaine HCl 5 ml 02/18/19 02:44 02/18/19 03:14 Xylocaine-Mpf 1% INJECT 02/18/19 02:45 5 ml ONETIME ONE Administration Methylprednisolone Sodium Succinate 125 mg 02/18/19 00:58 02/18/19 01:06 Solu-Medrol IVPUSH 02/18/19 00:59 125 mg ONETIME ONE Administration Ondansetron HCl 4 mg 02/17/19 23:36 02/17/19 23:49 Zofran IVPUSH 02/17/19 23:37 4 mg ONETIME ONE Administration Departure - Departure Time of Disposition: 04:14 Disposition: Home, Self-Care 01 Clinical Impression: Noncompliance with medication regimen Hypertension Qualifiers: Hypertension type: unspecified Qualified Code(s): I10 - Essential (primary) hypertension Headache Qualifiers: Headache type: unspecified Headache chronicity pattern: episodic headache Intractability: not intractable Qualified Code(s): R51 - Headache - Discharge Information Referrals: PCP,None [Primary Care Provider] - Forms: ED Department Discharge Additional Instructions: The following information is given to patients seen in the emergency department who are being discharged to home. This information is to outline your options for follow-up care. We provide all patients seen in our emergency department with a follow-up referral. The need for follow-up, as well as the timing and circumstances, are variable depending upon the specifics of your emergency department visit. If you don't have a primary care physician on staff, we will provide you with a referral. We always advise you to contact your personal physician following an emergency department visit to inform them of the circumstance of the visit and for follow-up with them and/or the need for any referrals to a consulting specialist. The emergency department will also refer you to a specialist when appropriate. This referral assures that you have the opportunity for followup care with a specialist. All of these measure are taken in an effort to provide you with optimal care, which includes your followup. Under all circumstances we always encourage you to contact your private physician who remains a resource for coordinating your care. When calling for followup care, please make the office aware that this follow-up is from your recent emergency room visit. If for any reason you are refused follow-up, please contact the [facility] emergency department at and ask to speak to the emergency department charge nurse. [facility] Primary care- Internal Medicine and Family [address] [id number] Please use [id number] ibuprofen/Motrin 800 mg every 8 hours for your headache and and the tramadol you have been given from [facility] as needed but only take at home. Please call the clinic this morning at 8:30 stating that you are on the expedited follow-up list and needed an appointment in the next few days reevaluation of this headache as well as her hypertension. Watch her salt and sodium intake in the foods that you're eating. Push hydration rest and return to ER as needed and as discussed - My Orders Last 24 Hours: My Active Orders 02/17/19 23:35 Cardiac Monitoring [RC] . DIRECTED Oxygen Therapy, ED [RC] ASDIRECTED Pulse Oximetry [RC] ASDIRECTED Saline Lock Insert [OM.PC] Stat 02/17/19 23:36 Sodium Chloride 0.9% [Saline Flush] 10 ml FLUSH ASDIRECTED PRN Sodium Chloride 0.9% [Saline Flush] 2.5 ml FLUSH ASDIRECTED PRN 02/18/19 03:06 Notify Provider Consults [RC] ASDIRECTED Consult to Physician [CONS] Stat 02/18/19 03:10 CULTURE CSF + SMEAR [RM] Stat GLUCOSE,CSF [BF] Stat PROTEIN,CSF [BF] Stat 02/18/19 03:45 Sodium Chloride 0.9% [Normal Saline] 1,000 ml IV ASDIRECTED - Assessment/Plan Last 24 Hours: My Active Orders 02/17/19 23:35 Cardiac Monitoring [RC] . DIRECTED Oxygen Therapy, ED [RC] ASDIRECTED Pulse Oximetry [RC] ASDIRECTED Saline Lock Insert [OM.PC] Stat 02/17/19 23:36 Sodium Chloride 0.9% [Saline Flush] 10 ml FLUSH ASDIRECTED PRN Sodium Chloride 0.9% [Saline Flush] 2.5 ml FLUSH ASDIRECTED PRN 02/18/19 03:06 Notify Provider Consults [RC] ASDIRECTED Consult to Physician [CONS] Stat 02/18/19 03:10 CULTURE CSF + SMEAR [RM] Stat GLUCOSE,CSF [BF] Stat PROTEIN,CSF [BF] Stat 02/18/19 03:45 Sodium Chloride 0.9% [Normal Saline] 1,000 ml IV ASDIRECTED
[2019-02-18 00:21] LABS: BLOOD UREA NITROGEN,BUN 17 mg/dL (7.0-18.0); CARBON DIOXIDE,CO2 27.2 mmol/L (21.0-32.0); CHLORIDE,CL 101 mmol/L (98-107); GLUCOSE RANDOM 118 mg/dL (74-106); POTASSIUM,K 3.6 mmol/L (3.5-5.1); SODIUM,NA 139 mmol/L (136-148)
--- NOTE | 2019-02-18 00:49 | CR ---
Indication: Pain, shortness of breath, hypertension Technique: Chest 1 view Comparison: None Findings/Impression: Cardiovascular and mediastinum: Heart size and vasculature are normal in caliber and appearance. Mediastinum is within normal limits. Lungs and pleural space: Lungs are clear. No sign of infiltrate or mass. No sign of pleural effusion. No pneumothorax. Bones and soft tissues: No significant findings. Dictated by Alix Josue MD @ Feb 18 2019 12:47AM Signed by Dr. Alix Josue @ Feb 18 2019 12:48AM
[2019-02-18] MEDS ORDERED: Ketorolac 30 MG/ML SDV IVPUSH ONE (00:58)
[2019-02-18] MEDS ORDERED: methylPREDNISolone Sodium Succinate 125 MG/2 ML SDV IVPUSH ONE (00:58)
[2019-02-18] MEDS ORDERED: diphenhydrAMINE 50 MG/ML SDV IVPUSH ONE (00:58)
--- NOTE | 2019-02-18 00:58 | CT ---
INDICATION: Headache. Hypertension TECHNIQUE: CT head without contrast. COMPARISON: None available FINDINGS: The ventricles and sulci are within normal limits. There is no mass effect or midline shift. There is no loss of victoria-white differentiation. There is no evidence of an acute intracranial hemorrhage. No acute calvarial fracture is seen. Foci of mild paranasal sinus mucosal thickening are seen. The mastoid air cells are clear. The visualized orbits are within normal limits. There is mild prominence of the posterior nasopharyngeal soft tissues for the patient`s age, containing a small calcification, nonspecific. IMPRESSION: No evidence of an acute intracranial hemorrhage, mass effect or loss of victoria-white differentiation. Mild paranasal sinus disease. Dictated by Tom Little MD @ 02/18/2019 12:57:03 AM Please note that all CT scans at this facility use dose modulation, iterative reconstruction, and/or weight-based dosing when appropriate to reduce radiation dose to as low as reasonably achievable. Dictated by: Tom Little MD @ 02/18/2019 00:57:22 (Electronically Signed)
[2019-02-18] MEDS ORDERED: Iopamidol 755 MG/ML 500 ML Multipack Bottle IVPUSH STA (01:39)
--- NOTE | 2019-02-18 02:04 | CT ---
INDICATION: Severe headache. TECHNIQUE: High resolution axial CT images acquired through the head following rapid intravenous administration of iodinated contrast. Multiplanar MIPS of cranial vasculature performed. COMPARISON: Noncontrast head CT 02/18/2019. FINDINGS: There is normal filling of the intracranial vasculature; i.e. there is no large vessel occlusion or intracranial stenosis. There is no cerebral aneurysm or evidence for vascular malformation. The underlying brain parenchyma is unremarkable at CTA. IMPRESSION: Normal CTA head. Marques Palomares MD Neurointerventional [employer] Please note that all CT scans at this facility use dose modulation, iterative reconstruction, and/or weight-based dosing when appropriate to reduce radiation dose to as low as reasonably achievable. Dictated by Marques Palomares MD @ Feb 18 2019 12:11PM Signed by Dr. Maruqes Palomares @ Feb 18 2019 12:14PM
[2019-02-18] MEDS ORDERED: HYDROmorphone 1 MG/ML Syringe IVPUSH ONE (03:41)
[2019-02-18] MEDS ORDERED: Sodium Chloride 0.9% 1,000 ML IV SCH (03:45)
== END 2019-02-18 04:25 | disposition home or self-care (01) ==
LOC: MW.ED 23:17
DX: R51 Headache (principal); I10 Essential (primary) hypertension; F17.210 Nicotine dependence, cigarettes, uncomplicated; Z87.442 Personal history of urinary calculi; Z91.14 Patient's other noncompliance with medication regimen
CPT/HCPCS: 36415; 62270; 70450; 70496; 71045; 80053; 81001; 82945; 84157; 84484; 85025; 85610; 87070; 87205; 89050; 93005; 96361; 96374; 96375; 99285; A9270; J1170; J1200; J1885; J2405; J2930; J7040; Q9967; J2001

== ENCOUNTER 2019-02-20 09:12 | Emergency (ER) | payer BC ==
[2019-02-20] MEDS ORDERED: Ketorolac 30 MG/ML SDV IVPUSH ONE (09:38)
[2019-02-20] MEDS ORDERED: Sodium Chloride 0.9% 1,000 ML IV ONE (09:38)
[2019-02-20] MEDS ORDERED: Sodium Chloride 0.9% 2.5 ML Syringe FLUSH PRN (09:38)
[2019-02-20] MEDS ORDERED: Sodium Chloride 0.9% 10 ML Syringe FLUSH PRN (09:38)
[2019-02-20] MEDS ORDERED: CAFFEINE CITRATE IV ONE (10:12)
[2019-02-20] MEDS ORDERED: SODIUM CHLORIDE 0.9% IV ONE (10:12)
--- NOTE | 2019-02-20 10:28 | PCM.SN ---
- Free Text/Narrative Note: Called by Dr Love to evaluate patient for possible post dural puncture headache. The patient was previously in the ER 02/17-02/18 for frontal headaches. A lumbar puncture was performed initially in the ER where the patient fainted. On my exam of the patient he denies photophobia; states the headache is worse when he is standing. The patient today describes his headache as in his upper cervical spine and radiating into his shoulders and he complains of nausea. The patient denies visual changes, stiff neck (as the patient was lying on his abdomen with his head turned laterally on my exam), denies low back pain or dizziness. The patient seemed convinced prior to my exam that he was experiencing a spinal headache. I explained the etiology and symptoms commonly found on presentation for post dural puncture headaches. I told the patient that if he is experiencing a spinal headache his presentation is atypical. I suggested we try a conservative approach of NS 1000mL bolus, IV caffeine, as well as a muscle relaxant. The patient agrees to with this treatment for now. I also explained if he does not improve that we may attempt a blood patch. The patient expressed understanding and wishes to proceed at this time. The plan of care was discussed with Dr Love who is in agreement at this time. See Dr Love's orders for caffeine and muscle relaxant dosing. Time spent with this patient in Anesthesia consultation from [id number].
--- NOTE | 2019-02-20 10:54 | EDM.PDOC ---
ED HPI GENERAL MEDICAL PROBLEM - General Chief Complaint: Headache Stated Complaint: HEADACHE Time Seen by Provider: 02/20/19 09:24 Source of Information: Reports: Patient History Limitations: Reports: No Limitations - History of Present Illness INITIAL COMMENTS - FREE TEXT/NARRATIVE: History of present illness: []Patient has been suffering from frontal headache and was worked up in the ED [address] with a CT head CT A, spinal tap and given medications for pain and high blood pressure. Patient feels that he is having a post spinal tap headache at this time as he has researched this on [employer] and talked to his many friends in the medical field. He states that the headache is experiencing now is different from the headache came in with 2 days ago it is a posterior pressure pain rating to his neck and shoulders. He denies any fevers, change in vision or vomiting. Review of systems: As per history of present illness and below otherwise all systems reviewed and negative. Past medical history: As per history of present illness and as reviewed below otherwise noncontributory. Surgical history: As per history of present illness and as reviewed below otherwise noncontributory. Social history: No reported history of drug or alcohol abuse. Family history: As per history of present illness and as reviewed below otherwise noncontributory. Physical exam: General: Well developed, well nourished in NAD HEENT: Atraumatic, normocephalic, pupils reactive, negative for conjunctival pallor or scleral icterus, mucous membranes moist, throat clear, neck supple, nontender, trachea midline. No nuchal rigidity opportunity Lungs: Clear to auscultation, breath sounds equal bilaterally, chest nontender. Heart: S1S2, regular, negative for clicks, rubs, or JVD. Abdomen: NABS, Soft, nondistended, nontender. Negative for masses or hepatosplenomegaly. Negative for costovertebral tenderness. Pelvis: Stable nontender. Genitourinary: Deferred. Rectal: Deferred. Extremities: Atraumatic, negative for cords or calf pain. Neurovascular unremarkable. Neuro: Awake, alert, oriented. Cranial nerves II through XII unremarkable. Cerebellum unremarkable. Motor and sensory unremarkable throughout. Exam nonfocal. Skin:warm and dry Diagnostics: None Therapeutics: IV hydration with saline and caffeine added, Norflex oral ED Course: Consulted PROCESS SERVER for possible blood patch 10:50-patient feels symptoms are slowly improving 11:22-patient feels better. Impression: Cephalgia Prescriptions: None Plan: Take meds as directed, follow up with your primary care physician, return to ER if symptoms worsen or change. Definitive disposition and diagnosis as appropriate pending reevaluation and review of above. Head Pain Score (Numeric/FACES): 8 - Related Data Allergies Allergy/AdvReac Type Severity Reaction Status Date / Time No Known Allergies Allergy Verified 02/20/19 09:28 Home Meds: Home Meds Lisinopril 20 mg PO DAILY 02/20/19 [History] Past Medical History - Past Health History Medical/Surgical History: Denies Medical/Surgical History HEENT History: Reports: None Cardiovascular History: Reports: Hypertension, Other (See Below) Other Cardiovascular History: states been off his HTN medications for almost a year Respiratory History: Reports: Asthma Gastrointestinal History: Reports: None Genitourinary History: Reports: Renal Calculus Musculoskeletal History: Reports: None Neurological History: Reports: None Psychiatric History: Reports: None Endocrine/Metabolic History: Reports: None Hematologic History: Reports: None Immunologic History: Reports: None Oncologic (Cancer) History: Reports: None Dermatologic History: Reports: None - Infectious Disease History Infectious Disease History: Reports: Chicken Pox - Past Surgical History Head Surgeries/Procedures: Reports: None HEENT Surgical History: Reports: Other (See Below) Other HEENT Surgeries/Procedures: jaw surgery Cardiovascular Surgical History: Reports: None Respiratory Surgical History: Reports: None GI Surgical History: Reports: None Male Surgical History: Reports: Other (See Below) Other Male Surgeries/Procedures: kidney stones blasted Endocrine Surgical History: Reports: None Neurological Surgical History: Reports: None Oncologic Surgical History: Reports: None Dermatological Surgical History: Reports: None Social & Family History - Family History Family Medical History: Noncontributory - Tobacco Use Smoking Status *Q: Current Every Day Smoker Years of Tobacco use: 5 Packs/Tins Daily: 0.5 - Caffeine Use Caffeine Use: Reports: None - Recreational Drug Use Recreational Drug Use: No ED ROS GENERAL - Review of Systems Review Of Systems: See Below - Physical Exam Exam: See Below Course - Vital Signs Last Recorded V/S: Last Vital Signs Temp 97.6 F 02/20/19 09:29 Pulse 81 02/20/19 09:29 Resp 16 02/20/19 09:29 BP 149/105 H 02/20/19 09:29 Pulse Ox 95 02/20/19 09:29 - Orders/Labs/Meds Orders: Active Orders 24 hr Category Date Time Status Orphenadrine [Norflex] Med 02/20/19 10:15 Active 60 mg IM Q12H Sodium Chloride 0.9% [Saline Flush] Med 02/20/19 09:38 Active 10 ml FLUSH ASDIRECTED PRN Sodium Chloride 0.9% [Saline Flush] Med 02/20/19 09:38 Active 2.5 ml FLUSH ASDIRECTED PRN Saline Lock Insert [OM.PC] Stat Oth 02/20/19 09:38 Ordered Medication Orders Orphenadrine Citrate (Norflex) 60 mg IM Q12H ISABEL Last Admin: 02/20/19 10:27 Dose: 60 mg Sodium Chloride (Saline Flush) 10 ml FLUSH ASDIRECTED PRN PRN Reason: Keep Vein Open Last Admin: 02/20/19 10:27 Dose: 10 ml Sodium Chloride (Saline Flush) 2.5 ml FLUSH ASDIRECTED PRN PRN Reason: Keep Vein Open Last Admin: 02/20/19 10:28 Dose: 2.5 ml Meds: Medications Generic Name Dose Route Start Last Admin Trade Name Freq PRN Reason Stop Dose Admin Orphenadrine Citrate 60 mg 02/20/19 10:15 02/20/19 10:27 Norflex IM 60 mg Q12H ISABEL Administration Sodium Chloride 10 ml 02/20/19 09:38 02/20/19 10:27 Saline Flush FLUSH 10 ml ASDIRECTED PRN Administration Keep Vein Open Sodium Chloride 2.5 ml 02/20/19 09:38 02/20/19 10:28 Saline Flush FLUSH 2.5 ml ASDIRECTED PRN Administration Keep Vein Open Discontinued Medications Generic Name Dose Route Start Last Admin Trade Name Freq PRN Reason Stop Dose Admin Sodium Chloride 1,000 mls @ 999 mls/hr 02/20/19 09:38 02/20/19 09:59 Normal Saline IV 02/20/19 10:38 999 mls/hr .Bolus ONE Administration Caffeine Citrate 500 mg/ 75 mls @ 200 mls/hr 02/20/19 10:09 02/20/19 10:42 Dextrose/Water IV 02/20/19 10:31 Not Given ONETIME ONE Caffeine Citrate 500 mg/ 1,025 mls @ 999 mls/hr 02/20/19 10:12 02/20/19 10:28 Sodium Chloride IV 02/20/19 11:10 999 mls/hr ONETIME ONE Administration Ketorolac Tromethamine 30 mg 02/20/19 09:38 02/20/19 10:02 Toradol IVPUSH 02/20/19 09:39 30 mg ONETIME ONE Administration Departure - Departure Time of Disposition: 11:22 Disposition: Home, Self-Care 01 Condition: Good Clinical Impression: Cephalgia Qualifiers: Headache type: unspecified Headache chronicity pattern: episodic headache Intractability: not intractable Qualified Code(s): R51 - Headache - Discharge Information *PRESCRIPTION DRUG MONITORING PROGRAM REVIEWED*: No *COPY OF PRESCRIPTION DRUG MONITORING REPORT IN PATIENT JUSTIN: No Instructions: General Headache Without Cause, [id number] Referrals: PCP,None [Primary Care Provider] - Forms: ED Department Discharge Additional Instructions: The following information is given to patients seen in the emergency department who are being discharged to home. This information is to outline your options for follow-up care. We provide all patients seen in our emergency department with a follow-up referral. The need for follow-up, as well as the timing and circumstances, are variable depending upon the specifics of your emergency department visit. If you don't have a primary care physician on staff, we will provide you with a referral. We always advise you to contact your personal physician following an emergency department visit to inform them of the circumstance of the visit and for follow-up with them and/or the need for any referrals to a consulting specialist. The emergency department will also refer you to a specialist when appropriate. This referral assures that you have the opportunity for follow-up care with a specialist. All of these measure are taken in an effort to provide you with optimal care, which includes your follow-up. Under all circumstances we always encourage you to contact your private physician who remains a resource for coordinating your care. When calling for follow-up care, please make the office aware that this follow-up is from your recent emergency room visit. If for any reason you are refused follow-up, please contact the [facility] Emergency Department at and asked to speak to the emergency department charge nurse. Take meds as directed, follow up with your primary care physician, return to ER if symptoms worsen or change. [facility] [address] [place] [id number] - My Orders Last 24 Hours: My Active Orders 02/20/19 09:38 Sodium Chloride 0.9% [Saline Flush] 10 ml FLUSH ASDIRECTED PRN Sodium Chloride 0.9% [Saline Flush] 2.5 ml FLUSH ASDIRECTED PRN Saline Lock Insert [OM.PC] Stat 02/20/19 10:15 Orphenadrine [Norflex] 60 mg IM Q12H - Assessment/Plan Last 24 Hours: My Active Orders 02/20/19 09:38 Sodium Chloride 0.9% [Saline Flush] 10 ml FLUSH ASDIRECTED PRN Sodium Chloride 0.9% [Saline Flush] 2.5 ml FLUSH ASDIRECTED PRN Saline Lock Insert [OM.PC] Stat 02/20/19 10:15 Orphenadrine [Norflex] 60 mg IM Q12H
== END 2019-02-20 11:35 | disposition home or self-care (01) ==
LOC: MW.ED 09:12
DX: R51 Headache (principal); I10 Essential (primary) hypertension; F17.210 Nicotine dependence, cigarettes, uncomplicated; Z79.899 Other long term (current) drug therapy
CPT/HCPCS: 96365; 96372; 96375; 99283; J0706; J1885; J2360; J7040

== ENCOUNTER 2021-07-24 15:17 | Emergency (ER) | payer BC | END 2021-07-24 18:33 | disposition home or self-care (01) | LOC: MW.ED 15:17 | DX: J02.0 Streptococcal pharyngitis (principal); I10 Essential (primary) hypertension; J45.909 Unspecified asthma, uncomplicated; Z79.899 Other long term (current) drug therapy | CPT/HCPCS: 87651-QW; 99283 ==

== ENCOUNTER 2022-01-03 13:27 | Emergency (ER) | payer BC, OTHER ==
[2022-01-03] MEDS ORDERED: Ibuprofen 600 MG Tab PO ONE (13:38)
[2022-01-03] MEDS ORDERED: traMADol 50 MG Tab PO ONE (13:38)
== END 2022-01-03 14:57 | disposition home or self-care (01) ==
LOC: MW.ED 13:27
DX: S93.401A Sprain of unspecified ligament of right ankle, initial encounter (principal); I10 Essential (primary) hypertension; Z79.899 Other long term (current) drug therapy; W22.8XXA Striking against or struck by other objects, initial encounter
CPT/HCPCS: 73610; 99283; A9270; 99282

== ENCOUNTER 2023-10-28 12:40 | Emergency (ER) | payer BC, OTHER ==
[2023-10-28] MEDS: Triamcinolone Acetonide 40 MG/ML 1 ML SDV INJECT STA (13:08)
== END 2023-10-28 13:32 | disposition home or self-care (01) ==
LOC: MW.ED 12:40
DX: J03.90 Acute tonsillitis, unspecified (principal); Z75.8 Other problems related to medical facilities and other health care; Z79.899 Other long term (current) drug therapy
CPT/HCPCS: 99282; J3301

== ENCOUNTER 2025-01-17 14:42 | Emergency (ER) | payer BC ==
[2025-01-17 15:18] LABS: BASOPHILS ABSOLUTE AUTO 0.09 K/uL (0.00-0.20); BASOPHILS PERCENT AUTO 0.9 % (0.0-1.0); EOSINOPHILS ABSOLUTE AUTO 0.14 K/uL (0.00-0.45); EOSINOPHILS PERCENT AUTO 1.4 % (0.0-6.0); IMMATURE GRAN ABSOLUTE AUTO 0.06 K/uL (0.00-0.05); IMMATURE GRAN PERCENT AUTO 0.6 % (0.0-0.4); LYMPHOCYTES ABSOLUTE AUTO 2.51 K/uL (1.00-4.80); LYMPHOCYTES PERCENT AUTO 25.2 % (24.0-44.0); MEAN PLATELET VOLUME 9.4 fL (9.4-12.4); MONOCYTES ABSOLUTE AUTO 0.81 K/uL (0.00-0.80); MONOCYTES PERCENT AUTO 8.1 % (0.0-8.0); NEUTROPHILS ABSOLUTE AUTO 6.37 K/uL (1.80-7.70); NEUTROPHILS PERCENT AUTO 63.8 % (41.0-71.0); NRBC ABSOLUTE 0.00 K/uL (0.00-0.02); NRBC PERCENT 0.0 /100WBC (0.0-0.2); PLATELET COUNT,PLT 260 K/uL (150-400); RED BLOOD CELL COUNT 6.27 M/uL (4.52-5.90); WHITE BLOOD CELL COUNT,WBC 9.98 K/uL (3.9-11.3)
[2025-01-17] MEDS: Ketorolac 30 MG/ML SDV IVPUSH ONE (15:18)
[2025-01-17 15:50] LABS: A/G RATIO 1.0 (0.9-1.6); ALANINE AMINOTRANSFERASE,ALT 33.0 IU/L (14-63); ASPARTATE AMNIOTRANSFERASE,AST 22.0 IU/L (15-37); BILIRUBIN TOTAL 0.9 mg/dL (0.2-1.0); BLOOD UREA NITROGEN,BUN 11.0 mg/dL (7.0-18.0); CARBON DIOXIDE,CO2 30.4 mmol/L (21.0-32.0); CHLORIDE,CL 101.0 mmol/L (98-107); CREATININE 1.0 mg/dL (0.8-1.3); EST CRCL DRUG DOSING (CG) 96.59 mL/min; ESTIMATED GFR 103.0 mL/min (>60); GLUCOSE RANDOM 84.0 mg/dL (74-106); POTASSIUM,K 4.3 mmol/L (3.5-5.1); PROTEIN TOTAL,TP 7.4 g/dL (6.4-8.2); SODIUM,NA 140.0 mmol/L (136-148)
[2025-01-17 16:39] LABS: APPEARANCE,URINE CLEAR; GLUCOSE,URINE NEGATIVE (NEGATIVE); OCCULT BLOOD,URINE NEGATIVE (NEGATIVE)
== END 2025-01-17 16:54 | disposition home or self-care (01) ==
LOC: MW.ED 14:42
DX: R10.32 Left lower quadrant pain (principal); I10 Essential (primary) hypertension; J45.909 Unspecified asthma, uncomplicated; Z79.899 Other long term (current) drug therapy
CPT/HCPCS: 36415; 74176; 80053; 81003; 85025; 96361; 96374; 99284; J1885; J7030; 99283